=== PATIENT | female | born 1945 | race African-American/Black ===

== ENCOUNTER 2023-04-03 16:47 | Emergency (ER) | payer OTHER ==
[2023-04-03 17:07] VITALS: BP 140/70; PULSE 88; RESP 19; TEMP 97.9; BMI 29.2
[2023-04-03] MEDS ORDERED: ACETAMINOPHEN INJECTION 100 ML IVPB ONE (18:00)
[2023-04-03] MEDS: SODIUM CHLORIDE 0.9% 500 ML INFUS.BAG IV ONE (18:05)
[2023-04-03] MEDS: ACETAMINOPHEN 1000 MG/100 ML BAG IVPB ONE (18:05)
[2023-04-03 18:25] LABS: HEMATOCRIT 45.4 % (32.4-45.2); HEMOGLOBIN 14.7 G/dL (10.7-15.3); MCH 26.1 pg (25.7-33.7); MCHC 32.3 g/dl (32.0-36.0); MEAN CELL VOLUME 80.8 fl (80-96); MEAN PLT VOLUME 7.9 fl (7.5-11.1); PLATELET COUNT 311.3 10^3/uL (134-434); RBC 5.62 10^6/uL (3.60-5.2); RDW 17.5 % (11.6-15.6); WHITE BLOOD COUNT 5.5 10^3/uL (4.0-10.8)
[2023-04-03 18:39] LABS: PLATELET ESTIMATE ADEQUATE
[2023-04-03 18:45] LABS: ALBUMIN 4.3 g/dl (3.4-5.0); BILIRUBIN,TOTAL 0.4 mg/dl (0.2-1); CALCIUM 9.8 mg/dl (8.5-10.1); CREATININE 0.9 mg/dl (0.6-1.3); MAGNESIUM 2.3 mg/dL (1.8-2.4); TOT PROT 6.7 g/dl (6.4-8.2)
== END 2023-04-03 19:45 | disposition home or self-care (01) ==
LOC: FER 16:47
PROC: 3E033NZ Introduction of Analgesics, Hypnotics, Sedatives into Peripheral Vein, Percutaneous Approach (ICD-10-PCS; principal; 2023-04-03)
DX: M25.512 Pain in left shoulder (principal); R07.89 Other chest pain; M79.10 Myalgia, unspecified site
CPT/HCPCS: 36415; 71045-TC-FY; 80053; 82550; 83735; 84484; 85027; 93005; 99285-25; J0131